=== PATIENT | female | born 1975 | race Hispanic/Latino ===

== ENCOUNTER 2018-12-26 14:46 | Emergency (ER) | payer BC, OTHER ==
[~2018-12-26 14:46] MED LIST: AEC81 PO
[2018-12-26 17:31] LABS: BASOPHILS % (AUTO) 0.8 % (0.0-5.0); HEMATOCRIT 28.8 % (36-48); LYMPHOCYTES % (AUTO) 17.6 % (21.0-51.0); MEAN CORPUSCULAR HEMOGLOBIN 25.4 pg (27.0-33.0); MEAN CORPUSCULAR HGB CONC 32.9 g/dL (32.0-36.0); MEAN CORPUSCULAR VOLUME 77.1 fL (79-99); MONOCYTES % (AUTO) 7.7 % (3.0-13.0); NEUTROPHILS % (AUTO) 71.9 % (40.0-77.0); PLATELET COUNT (AUTO) 306 K/uL (130-400); RED BLOOD CELL COUNT(AUTO) 3.73 MIL/uL (4.00-5.50); WHITE BLOOD COUNT (AUTO) 8.3 K/uL (4.8-10.8)
[2018-12-26 17:36] LABS: CREATININE 1.6 mg/dL (0.5-1.5); POTASSIUM 3.5 mmol/L (3.5-5.1)
[2018-12-26 17:41] LABS: ALBUMIN 2.8 g/dL (3.5-5.0); BILIRUBIN,TOTAL 0.1 mg/dL (0.2-1.0); TOTAL PROTEIN, SERUM 7.2 g/dL (6.0-8.3)
== END 2018-12-26 19:06 | disposition home or self-care (01) ==
LOC: EDH 14:46
DX: R55 Syncope and collapse (principal); I10 Essential (primary) hypertension; I48.91 Unspecified atrial fibrillation; E66.01 Morbid (severe) obesity due to excess calories; Z88.6 Allergy status to analgesic agent; Z86.73 Personal history of transient ischemic attack (TIA), and cerebral infarction without residual deficits; Z96.89 Presence of other specified functional implants; Z88.8 Allergy status to other drugs, medicaments and biological substances; Z68.44 Body mass index [BMI] 60.0-69.9, adult
CPT/HCPCS: 36415; 80053; 84484; 85025; 93005; 96360; 96361

== ENCOUNTER 2019-02-15 09:50 | Emergency (ER) | payer BC ==
[2019-02-15 11:45] LABS: BASOPHILS % (AUTO) 0.9 % (0.0-5.0); EOSINOPHILS % (AUTO) 1.3 % (0.0-8.0); LYMPHOCYTES % (AUTO) 16.7 % (21.0-51.0); MEAN CORPUSCULAR HEMOGLOBIN 26.4 pg (27.0-33.0); MEAN CORPUSCULAR HGB CONC 33.1 g/dL (32.0-36.0); MEAN CORPUSCULAR VOLUME 79.6 fL (79-99); MONOCYTES % (AUTO) 8.2 % (3.0-13.0); NEUTROPHILS % (AUTO) 72.9 % (40.0-77.0); PLATELET COUNT (AUTO) 301 K/uL (130-400); RED BLOOD CELL COUNT(AUTO) 4.27 MIL/uL (4.00-5.50); RED CELL DISTRIBUTION WIDTH 19.9 % (11.0-15.5); WHITE BLOOD COUNT (AUTO) 9.7 K/uL (4.8-10.8)
[2019-02-15 11:56] LABS: CREATININE 1.5 mg/dL (0.5-1.5); POTASSIUM 4.2 mmol/L (3.5-5.1)
[2019-02-15 12:00] LABS: ALBUMIN 3.1 g/dL (3.5-5.0); BILIRUBIN,TOTAL 0.2 mg/dL (0.2-1.0); TOTAL PROTEIN, SERUM 7.6 g/dL (6.0-8.3)
[2019-02-15] MEDS ORDERED: IOHEXOL 350 MG/ML 100ML INFUS..BTL IV ONE (12:38)
[2019-02-15 12:41] LABS: INR 0.91 (0.85-1.15); PARTIAL THROMBOPLASTIN TIME 26.5 SEC (26.3-35.5); PROTHROMBIN TIME 9.6 SEC (9.6-11.6)
[2019-02-15 14:01] LABS: APPEARANCE,URINE Clear (CLEAR); BILIRUBIN,URINE Negative (NEGATIVE); COLOR,URINE Yellow (YELLOW); GLUCOSE, URINE (UA) Negative (NEGATIVE); KETONES,URINE Negative (NEGATIVE); LEUKOCYTE ESTERASE ,URINE Negative (NEGATIVE); NITRATE,URINE Negative (NEGATIVE); OCCULT BLOOD,URINE Negative (NEGATIVE); PROTEIN,URINE POS 2+ mg/dL (NEGATIVE); UROBILINOGEN,URINE 0.2 mg/dL (0.2-1.0)
[2019-02-15 14:10] LABS: BACTERIA,URINE Rare /HPF (None Seen); RBC,URINE 0-1 /HPF (0-1); SQUAMOUS EPITHELIAL CELL,UR Few /HPF (0-2); WBC,URINE 0-1 /HPF (0-1)
== END 2019-02-15 16:06 | disposition home or self-care (01) ==
LOC: EDH 09:50
DX: R42 Dizziness and giddiness (principal); R51 Headache; I10 Essential (primary) hypertension; I48.91 Unspecified atrial fibrillation; Z95.0 Presence of cardiac pacemaker; Z98.890 Other specified postprocedural states; Z90.49 Acquired absence of other specified parts of digestive tract; Z88.8 Allergy status to other drugs, medicaments and biological substances
CPT/HCPCS: 36415; 70496; 70498; 80053; 81001; 84484; 85025; 85610; 85730; 93005; 96360; 96361; 99285; Q9967

== ENCOUNTER → 2019-09-22 | Outpatient (CLI) | payer OTHER | END | disposition home or self-care (01) | LOC: RAH 13:09 | PROVIDERS: ATTEND Orthopaedic Surgery | DX: M47.816 Spondylosis without myelopathy or radiculopathy, lumbar region (principal); E66.01 Morbid (severe) obesity due to excess calories; S33.5XXD Sprain of ligaments of lumbar spine, subsequent encounter; X58.XXXD Exposure to other specified factors, subsequent encounter | CPT/HCPCS: 72131 ==

== ENCOUNTER 2020-05-12 19:16 | Emergency (ER) | payer OTHER ==
[2020-05-12 19:42] LABS: BASOPHILS % (AUTO) 0.9 % (0.0-5.0); EOSINOPHILS % (AUTO) 1.9 % (0.0-8.0); HEMATOCRIT 31.8 % (36-48); LYMPHOCYTES % (AUTO) 15.8 % (21.0-51.0); MEAN CORPUSCULAR HEMOGLOBIN 22.6 pg (27.0-33.0); MEAN CORPUSCULAR HGB CONC 29.6 g/dL (32.0-36.0); MEAN CORPUSCULAR VOLUME 76.4 fL (79-99); MONOCYTES % (AUTO) 9.1 % (3.0-13.0); NEUTROPHILS % (AUTO) 71.9 % (40.0-77.0); PLATELET COUNT (AUTO) 371 K/uL (130-400); RED BLOOD CELL COUNT(AUTO) 4.16 MIL/uL (4.00-5.50); RED CELL DISTRIBUTION WIDTH 15.9 % (11.0-15.5); WHITE BLOOD COUNT (AUTO) 9.7 K/uL (4.8-10.8)
[2020-05-12] MEDS ORDERED: LIDOCAINE HCL 2% VISCOUS 15 ML UDCUP ONE (19:54)
[2020-05-12] MEDS ORDERED: MAG HYDROX/AL HYDROX/SIMETH ES 30 ML SUSP UDCUP ONE (19:54)
[2020-05-12] MEDS ORDERED: METOCLOPRAMIDE 10 MG/2 ML VIAL ONE (19:55)
[2020-05-12 19:56] LABS: INR 0.88 (0.85-1.15); PARTIAL THROMBOPLASTIN TIME 23.6 SEC (26.3-35.5); PROTHROMBIN TIME 9.5 SEC (9.6-11.6)
[2020-05-12] MEDS ORDERED: FAMOTIDINE/PF 20 MG/2 ML VIAL IV ONE (19:56)
[2020-05-12 19:59] LABS: CREATININE 1.9 mg/dL (0.5-1.5); POTASSIUM 3.6 mmol/L (3.5-5.1)
[2020-05-12 20:03] LABS: ALBUMIN 3.2 g/dL (3.5-5.0); BILIRUBIN,TOTAL 0.2 mg/dL (0.2-1.0); TOTAL PROTEIN, SERUM 7.8 g/dL (6.0-8.3)
== END 2020-05-12 21:15 | disposition home or self-care (01) ==
LOC: EDH 19:16
DX: R10.13 Epigastric pain (principal); R07.89 Other chest pain; R11.0 Nausea; R53.1 Weakness; I10 Essential (primary) hypertension; I48.91 Unspecified atrial fibrillation; Z86.73 Personal history of transient ischemic attack (TIA), and cerebral infarction without residual deficits; Z95.0 Presence of cardiac pacemaker; Z88.6 Allergy status to analgesic agent; Z88.8 Allergy status to other drugs, medicaments and biological substances
CPT/HCPCS: 36415; 71045; 80053; 82550; 83690; 83880; 84484; 85025; 85610; 85730; 93005; 96374; 96375; 99285; J2765; J3490

== ENCOUNTER → 2024-06-02 | Outpatient (CLI) | payer OTHER, MEDICARE ==
[~2024-06-02] VITALS: Ht 175.3 cm; Wt 224.1 kg
[~2024-06-02] MED LIST changes: -AEC81 PO; +AMLO-258 PO; +APIX5TAB PO; +CHOL100020 PO; +CYAN-106 PO; +FERR210T PO; +FOLI0.8T22 PO; +FOLI0.8T3 PO; +FURO40TA5 PO; +HYDR50TA37 PO; +PANT40TA55 PO; +SENN-7 PO; +SENN8.6T32 PO; +SEVE800T27 PO
[2024-06-02 14:09] LABS: EOSINOPHILS # (AUTO) 0.21 K/uL (0.00-0.70); EOSINOPHILS % (AUTO) 2.2 % (0.0-8.0); HEMATOCRIT 37.5 % (36-48); IMMATURE GRANULOCYTE ABSOLUTE 0.05 K/uL (0-1); LYMPHOCYTES # (AUTO) 1.8 K/uL (1.0-4.8); LYMPHOCYTES % (AUTO) 19.1 % (21.0-51.0); MEAN CORPUSCULAR HEMOGLOBIN 32.8 pg (27.0-33.0); MEAN CORPUSCULAR HGB CONC 31.7 g/dL (32.0-36.0); MEAN CORPUSCULAR VOLUME 103.3 fL (79-99); MONOCYTES # (AUTO) 0.7 K/uL (0.1-1.0); MONOCYTES % (AUTO) 6.7 % (3.0-13.0); NEUTROPHILS # (AUTO) 6.8 K/uL (1.8-7.7); NEUTROPHILS % (AUTO) 70.5 % (40.0-77.0); PLATELET COUNT (AUTO) 299 K/uL (130-400); RED BLOOD CELL COUNT(AUTO) 3.63 MIL/uL (4.00-5.50); RED CELL DISTRIBUTION WIDTH 14.8 % (11.0-15.5); WHITE BLOOD COUNT (AUTO) 9.6 K/uL (4.8-10.8)
[2024-06-02 14:10] VITALS: BP 172/80; PULSE 87; RESP 18
[2024-06-02 14:23] LABS: PROTHROMBIN TIME 10.8 SEC (9.6-11.6)
[2024-06-02 14:25] LABS: PARTIAL THROMBOPLASTIN TIME 24.8 SEC (26.3-35.5)
== END | disposition home or self-care (01) ==
LOC: EDSTATUS 08:00 → DAH 10:00
PROVIDERS: ATTEND Student in an Organized Health Care Education/Training Program
DX: Z01.818 Encounter for other preprocedural examination (principal); N18.6 End stage renal disease
CPT/HCPCS: 84703; 85025; 85610; 85730; 36415; A6260

== ENCOUNTER → 2024-09-29 | Outpatient (CLI) | payer OTHER ==
[~2024-09-29] VITALS: Ht 22.9 cm; Wt 226.4 kg
[~2024-09-29] MED LIST changes: +AMOX1TAB15 PO; +APIX2.5T PO; -APIX5TAB PO; +CINA60TA4 PO; +CLIN-26 PO; -FOLI0.8T22 PO; -FOLI0.8T3 PO; +FOLI1TAB85 PO; +MUPI22OI2 TP; -SENN8.6T32 PO; -SEVE800T27 PO; +SEVE800T7 PO
--- NOTE | 2024-09-29 16:27 | NUR ---
BARIATRIC INITIAL ASSESSMENT VISIT 1 OF 3 Wt: 499.2 lbs DOS: 09/29/24 Daughter present during visit. Pt seeking bariatric procedure to aid in wt loss and improve medical health conditions. Pt reported she takes phosphate binders, diuretics, HTN medication, folic avid, vit. b12, vit. 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, on a fluid restriction 1.5L, is on a wheelchair due to a back injury, her sister recently had the sleeve, has 2 children living at home, daughter cooks and goes grocery shopping, had a stroke 2014 and 2017, has poor appetite, usually eats ~2 meals + 1 snack per day, takes 10 min to eat, drinks soda 3x per week, sparkling soda 1x per day, sweets 1x per week, fast food 2x per month, does not struggle with stress eating, does not work, does not travel often, has the means to purchase healthy food with no issue, sleeping varies from 4 to 8 hrs, has support system, goal wt of at least 300 lbs, is motivated to get procedure to get on the list for renal transplant. RD conducted 24 hr recall: Breakfast: skipped Lunch: smoked chicken + small rice + beans + sparkling water Dinner: burger + cheese + lemonade Snack(s): N/A RD reviewed portion sizes with pt, reviewed healthy plate, informed Pt of importance of protein intake, encouraged Pt to do strength training with bands, Pt verbalized understanding. Pt completed wt management program diet readiness questionnaire. Results are as follows: Section 1: Goals and Attitudes. Score of 29. The path is clear with respect to goals and attitudes. Sections 2: Hunger and Eating cues. Score 7. You may have a moderate tendency to eat just because food is available. Dieting may be easier for you if you try to resist external cues and eat only when you are physically hungry. Section 3: Control over Eating. Score 4.You recover rapidly from mistakes. However, if you frequently alternate between eating out of control and dieting strictly, you may have a serious eating problem and should get professional help. Section 4: Imelda Eating and Purging: Score 0.It appears that binge eating, and purging is not a problem for you. Section 5: Emotional Eating: Score 3.You do not appear to let your emotions affect your eating. Section 6: Exercise Patterns and Attitudes: Score 12.You need to feel more positive about exercise so that you can do it more often. Think of ways to be more active that are fun and fit your lifestyle. Goals Established: -seated exercise 10 min 2 x per week -continue renalVITE QD -decrease carbonation Pt in agreement with goals and is aware she will need to cut carbonated beverages, sweets and caffeine prior to surgery. Recommended for Pt to complete visits with Dietitian to prepare for bariatric procedure. Thank you for this visit. Addendum: 09/29/24 at [address] Amended: Links added.
== END | disposition home or self-care (01) ==
LOC: DTH 15:20
PROVIDERS: ATTEND Surgery
DX: G47.33 Obstructive sleep apnea (adult) (pediatric) (principal); E66.01 Morbid (severe) obesity due to excess calories; E78.00 Pure hypercholesterolemia, unspecified; K76.0 Fatty (change of) liver, not elsewhere classified; K21.9 Gastro-esophageal reflux disease without esophagitis
CPT/HCPCS: 97802

== ENCOUNTER → 2024-10-25 | Outpatient (CLI) | payer OTHER ==
--- NOTE | 2024-10-25 15:50 | NUR ---
BARIATRIC FOLLOW UP NOTE VISIT 2 OF 3 Wt: 235 LBS DOS: 10/25/24 Upon follow up visit, pt presents with a 3 lb wt loss. Pt reported she continues with zahra-RUBÉN QD, decreased carbonation, continues sugary drinks, taking time to eat, takes vit. D daily 2,500 ius, arxia w/ iron, receives blood transfusion while in HD, on a 1.5 fluid restriction, plans to talk to her MD regarding fluid restriction. RD conducted 24 hr food recall. Breakfast: skipped due to dialysis Lunch: 2 pizza slices + water Dinner: baked chicken thigh + corn + macaroni RD reviewed simple CHO and complex CHO intake, encouraged pt to decrease soft drink (even sugar free) consumption secondary to carbonation and caffeine, pt verbalized understanding. RD and pt established goals for next month: -switch to SF beverages -continue zahra-RUBÉN -balanced meals Thank you for this visit Plan to talk to renal RD due to dialysis dietary recs and bariatric dietary recs. Addendum: 10/25/24 at [address] Amended: Links added.
== END | disposition home or self-care (01) ==
LOC: DTH 07:53
PROVIDERS: ATTEND Surgery
DX: G47.33 Obstructive sleep apnea (adult) (pediatric) (principal); E66.01 Morbid (severe) obesity due to excess calories; E78.00 Pure hypercholesterolemia, unspecified; K76.0 Fatty (change of) liver, not elsewhere classified; K21.9 Gastro-esophageal reflux disease without esophagitis; Z71.3 Dietary counseling and surveillance; Z68.45 Body mass index [BMI] 70 or greater, adult
CPT/HCPCS: 97803

== ENCOUNTER → 2024-10-25 | Outpatient (CLI) | payer OTHER ==
--- NOTE | 2024-10-25 09:49 | EKG ---
[facility] Test Date: 2024-10-25 Test Time: 10:24:56 Pat Name: MANA ABDUL Department: LAB Patient ID: [facility] [place]-[id number] Room: Gender: F Chief Sales Officer: [id number] : 1975 Requested By: DIETER HERNANDEZ Order Number: [id number] Reading MD: Naheed Jameson Measurements Intervals [place] Rate: 80 P: 43 ME: 333 QRS: -26 QRSD: 110 T: -76 QT: 414 QTc: 477 Interpretive Statements Sinus rhythm Prolonged ME interval Compared to ECG 09/21/2024 08:28:26 No significant changes Electronically Signed On 10-26-2024 17:09:22 MYSQL DEVELOPER by Naheed Jameson Please click the below link to view image of tracing.
[2024-10-25 09:53] LABS: BASOPHILS # (AUTO) 0.11 K/uL (0.00-0.20); BASOPHILS % (AUTO) 1.1 % (0.0-5.0); EOSINOPHILS % (AUTO) 1.9 % (0.0-8.0); HEMATOCRIT 41.8 % (36-48); IMMATURE GRANULOCYTE ABSOLUTE 0.05 K/uL (0-1); LYMPHOCYTES # (AUTO) 1.8 K/uL (1.0-4.8); LYMPHOCYTES % (AUTO) 17.5 % (21.0-51.0); MEAN CORPUSCULAR HEMOGLOBIN 30.5 pg (27.0-33.0); MEAN CORPUSCULAR HGB CONC 31.1 g/dL (32.0-36.0); MEAN CORPUSCULAR VOLUME 98.1 fL (79-99); MONOCYTES # (AUTO) 0.6 K/uL (0.1-1.0); NEUTROPHILS # (AUTO) 7.5 K/uL (1.8-7.7); PLATELET COUNT (AUTO) 268 K/uL (130-400); RED BLOOD CELL COUNT(AUTO) 4.26 MIL/uL (4.00-5.50); RED CELL DISTRIBUTION WIDTH 15.8 % (11.0-15.5); WHITE BLOOD COUNT (AUTO) 10.3 K/uL (4.8-10.8)
[2024-10-25 10:01] LABS: HEMOGLOBIN A1C 5.1 % (4.0-6.0)
[2024-10-25 10:21] LABS: ALBUMIN 3.7 g/dL (3.5-5.0); BILIRUBIN,TOTAL 0.3 mg/dL (0.2-1.0); MAGNESIUM 2.3 mg/dL (1.80-2.40); POTASSIUM 3.8 mmol/L (3.5-5.1); T4 (THYROXINE) 9.6 ug/dL (4.7-13.3); THYROID STIMULATING HORMONE 3.03 uIU/mL (0.36-3.74); TOTAL PROTEIN, SERUM 8.4 g/dL (6.0-8.3)
[2024-10-25 10:27] LABS: CREATININE 8.3 mg/dL (0.5-1.0)
--- NOTE | 2024-10-25 14:26 | HMCIMG ---
CHEST 1VW REASON: WEIGHT LOSS PROGRAM COMPARISON: 09/21/2024 FINDINGS: Single view of the chest was obtained. Lungs are clear. Heart size is normal. There is no pulmonary vascular congestion. Mediastinum and bony thorax appear unremarkable. There is a PermCath in place. There is a bipolar pacemaker. IMPRESSION: 1. No acute finding, no change.
== END | disposition home or self-care (01) ==
LOC: LAB 08:21
PROVIDERS: ATTEND Surgery
DX: E78.00 Pure hypercholesterolemia, unspecified (principal); K76.0 Fatty (change of) liver, not elsewhere classified; E78.5 Hyperlipidemia, unspecified; K21.9 Gastro-esophageal reflux disease without esophagitis; G47.33 Obstructive sleep apnea (adult) (pediatric); E66.01 Morbid (severe) obesity due to excess calories; Z68.45 Body mass index [BMI] 70 or greater, adult; Z79.899 Other long term (current) drug therapy
CPT/HCPCS: 36415; 71045; 80053; 80061; 82306; 82607; 82746; 83036; 83540; 83735; 84207; 84425; 84436; 84443; 84446; 84481; 84590; 84630; 85025; 93005

== ENCOUNTER → 2024-11-06 | Outpatient (CLI) | payer OTHER ==
[2024-11-06 21:18] VITALS: PULSE 82; RESP 18
[2024-11-06 22:00] VITALS: PULSE 74; RESP 18
[2024-11-06 22:30] VITALS: PULSE 74; RESP 18
[2024-11-06 23:00] VITALS: PULSE 74; RESP 18
[2024-11-06 23:30] VITALS: PULSE 76; RESP 20
[2024-11-07] VITALS (10 sets, daily range): PULSE 72–76; RESP 14–18
--- NOTE | 2024-11-07 02:47 | NUR ---
PROTONIX 40 MG,FUROSIMIDE 40 MG, HYDRALAZINE 50 MG,ELIQUIS 2.5 MG,COLACE 50 MG Addendum: 11/07/24 at 0257 by SIS LEON Amended: Links added.
== END | disposition home or self-care (01) ==
LOC: SLP 20:09
PROVIDERS: ATTEND Internal Medicine Pulmonary Disease
DX: G47.33 Obstructive sleep apnea (adult) (pediatric) (principal); E66.9 Obesity, unspecified; R53.83 Other fatigue; I10 Essential (primary) hypertension
CPT/HCPCS: 95810

== ENCOUNTER → 2024-11-29 | Outpatient (CLI) | payer OTHER ==
[2024-11-29 22:33] VITALS: PULSE 66; RESP 20
[2024-11-29 23:02] VITALS: PULSE 65; RESP 14
[2024-11-29 23:47] VITALS: PULSE 64; RESP 17
[2024-11-30] VITALS (14 sets, daily range): PULSE 58–74; RESP 13–20
== END | disposition home or self-care (01) ==
LOC: SLP 20:52
PROVIDERS: ATTEND Internal Medicine Pulmonary Disease
DX: G47.33 Obstructive sleep apnea (adult) (pediatric) (principal)
CPT/HCPCS: 95811

== ENCOUNTER → 2024-12-07 | Outpatient (CLI) | payer OTHER ==
--- NOTE | 2024-12-07 16:33 | NUR ---
FOLLOW PRE-OP/POST-OP DIETARY RECOMMENDATIONS BARIATRIC PRE-OP VISIT VISIT 3 OF 3 Wt:492 lbs DOS:12/07/24 Visit via telehealth due to patient's preference + current spouse health situation. E-mailed Handout. Upon follow up visit, pt presented with a ~4 lb wt loss. 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 RD reviewed educational material for pre-op and post-op diet recommendations with detailed phases of diet post-op. Pt was informed of importance of lifelong vitamin/mineral supplementation, choosing protein first during meals (pt was educated on higher protein requirements), choosing low calorie, sugar free, carbonated free and caffeine beverages. RD also informed pt on lifelong commitment to exercise and dietary recommendations for optimal success post surgery. RD encouraged getting blood work every 3 to 6 months, including B-vitamins, Pt verbalized understanding. RD informed Pt on moving around after procedure to prevent DVT, Pt verbalized understanding. Pt was encouraged to contact RD as questions arise and to attend support groups. RD provided protein supplement recommendations along with Bariatric Vitamin recommendations via graphics to patient. Pt with several questions, all of which were answered. Poor compliance suspected. Pt will benefit from outpatient bariatric dietitian follow up post procedure. Pt to follow up with PCP for labs. Thank you for this visit. Addendum: 12/07/24 at [address] Amended: Links added.
== END | disposition home or self-care (01) ==
LOC: DTH 16:27
PROVIDERS: ATTEND Surgery
DX: G47.33 Obstructive sleep apnea (adult) (pediatric) (principal); K76.0 Fatty (change of) liver, not elsewhere classified; K21.9 Gastro-esophageal reflux disease without esophagitis; E66.01 Morbid (severe) obesity due to excess calories; Z68.45 Body mass index [BMI] 70 or greater, adult
CPT/HCPCS: 97803

== ENCOUNTER 2025-05-04 16:48 | Emergency (ER) | payer OTHER ==
[~2025-05-04] VITALS: Ht 175.3 cm; Wt 226.9 kg
[~2025-05-04 16:48] MED LIST changes: -AMOX1TAB15 PO; -CLIN-26 PO; +FOLI0.4T6 PO; +HYDR25 PO; +METO50TA9 PO; -MUPI22OI2 TP
--- NOTE | 2025-05-04 17:44 | NUR ---
PT PRESENTS WITH BLATERAL NON-FUNCTIONAL AV GRAFTS. PT STATES THEY ARE NOT CURRENTLY PRESERVING EITHER ARM FOR DIALYSIS. PER PT SHE IS GETTING DIALYSIS VIA RIGHT CHEST PERMACATH, WHICH WILL BE USED UNTIL AFTER HER GASTRIC BYPASS AND SUBSEQUENT WEIGHT LOSS. PT STATES THEY HAVE USED BOTH ARMS FOR BOTH BLOOD DRAW AND IV ACCESS.
[2025-05-04 17:59] LABS: IMMATURE GRANULOCYTE ABSOLUTE 0.04 K/uL (0-1); NUCLEATED RED BLOOD CELLS 0.0 % (0.0-0.19); PLATELET COUNT (AUTO) 277 K/uL (130-400); RED BLOOD CELL COUNT(AUTO) 3.32 MIL/uL (4.00-5.50); RED CELL DISTRIBUTION WIDTH 14.1 % (11.0-15.5); WHITE BLOOD COUNT (AUTO) 9.0 K/uL (4.8-10.8)
[2025-05-04 18:18] LABS: GLOMERULAR FILTR. RATE CALC 4.0 mL/min (>90); GLUCOSE,RANDOM 127.0 mg/dL (70-105); SODIUM SERUM 141.0 mmol/L (136-145); UREA NITROGEN, BLOOD 42.0 mg/dL (7-18)
[2025-05-04 18:21] LABS: CREATININE 11.8 mg/dL (0.5-1.0)
--- NOTE | 2025-05-04 18:44 | ERN ---
General Chief Complaint: Chest Wall Pain Stated Complaint: CHEST DISCOMFORT Time Seen by MD: 16:53 Source: patient History of Present Illness Initial Comments Patient is a 50-year-old female coming in complaining of chest pressure. Per patient she does has a history of end-stage renal disease has a has been dialyzed but states he has been having chest pressure. Patient states that she has a similar episode in the past but a heart normal per calcium score. Allergies: Coded Allergies: amiodarone (Unverified Allergy, Severe, ANAPHYLAXIS, 01/07/15) codeine (Unverified Allergy, Severe, SWOLLEN TONGUE, 01/07/15) lisinopril (Unverified Allergy, Unknown, 08/19/24) ANGIOEDEMA [id number] Reductase Inhibitor (Unverified Adverse Reaction, Unknown, 08/19/24) RHABDOMYOLYSIS Home Meds Active Scripts Metoprolol Succinate (Toprol Xl) 50 Mg Tab.er.24h, 50 MG PO DAILY, #30 TAB 0 Refills Prov:AVERY ALBRIGHT AGPCNP 03/04/25 Hydralazine HCl (Apresoline) 25 Mg Tab, 50 MG PO Q12H, #60 TAB 0 Refills Prov:AVERY ALBRIGHT AGPCNP 03/04/25 Apixaban (Eliquis) 2.5 Mg Tablet, 2.5 MG PO BID, #60 TAB 1 Refill Prov:PORSHA [facility] 09/23/24 Reported Medications Folic Acid (Folic Acid) 0.4 Mg Tablet, 1 MG PO DAILY, TAB 03/01/25 Cinacalcet HCl (Cinacalcet HCl) 60 Mg Tablet, 60 MG PO BID, TAB 09/21/24 Ferric Citrate (Ferric Citrate) 210 Mg Iron Tablet, 2 TAB PO TID for 30 Days, #180 TAB 0 Refills 09/21/24 Sevelamer Carbonate (Renvela) 800 Mg Tablet, 800 MG PO TID, TAB 09/21/24 Vit B Cmplx 3/FA/Vit C/Biotin (Wen-Christian Rx Tablet) 1 Mg-60 Mg-300 Mcg Tablet, 1 TAB PO DAILY for 30 Days, #30 TAB 0 Refills 09/21/24 Sennosides/Docusate Sodium (Senna-Docusate Sodium Tablet) 8.6 Mg-50 Mg Tablet, 1 EACH PO BID, TAB 06/02/24 Amlodipine Besylate (Amlodipine Besylate) 10 Mg Tablet, 10 MG PO DAILY for 30 Days, #30 TAB 0 Refills 05/23/24 Cholecalciferol (Vitamin D3) (Vitamin D3) 25 Mcg (1000 Unit) Tablet, 25 MCG PO DAILY, TAB 05/23/24 Cyanocobalamin (Vitamin B-12) (Vitamin B12) 1,000 Mcg Tablet, 1000 MCG PO DAILY, TAB 05/23/24 Pantoprazole Sodium (Protonix) 40 Mg Ectab, 40 MG PO DAILY, TAB.EC 05/23/24 Hydralazine HCl (Hydralazine HCl) 50 Mg Tablet, 50 MG PO TID, TAB 05/23/24 Furosemide (Furosemide) 40 Mg Tablet, 40 MG PO BID, TAB 05/23/24 Past Medical History Past Medical History: Anemia, CAD, CVA, High Cholesterol, Heart Disease, Hypertension, Renal Failure, Other Medical History Other: HX OF SLEEP APNEA Past Surgical History: Cholecystectomy, Pacer/AICD, Other, Surgical History Other: RIGHT CHEST , LEFT RAMIN CATH Family History Family History: Negative Social History Social History: Negative ROS Dictation CONSTITUTIONAL: No chills, no fever, no weakness, no diaphoresis, no malaise. HEAD/FACE: No signs of trauma. EENT: No eye pain, no blurred vision, no tearing, no double vision, no ear pain, no ear discharge, no nose pain, no nasal congestion, no throat pain, no th roat swelling, no mouth pain. RESPIRATORY: No cough, no orthopnea, no SOB, no stridor, no wheezing. CARDIOVASCULAR: chest pain, no edema, no palpitations, no syncope. GASTROINTESTINAL/ABDOMINAL: No abdominal pain, no constipation, no diarrhea, no nausea, no vomiting. GENITOURINARY: No abnormal discharge, no dysuria, no frequent urination, no hematuria. No complaints of pain in the genitals. MUSCULOSKELETAL: No back pain, no gout, no joint pain, no joint swelling, no muscle pain, no muscle stiffness, no neck pain. INTEGUMENTARY: No change in color, no change in hair/nails, no dryness, no lesion, no lumps, no rash. NEUROLOGICAL/PSYCH: No anxiety, not depressed, no emotional problem, no headache, no numbness, no pre-existing deficit, no history of seizures, no tremors, no weakness. HEMATOLOGIC/LYMPHATIC: Not anemic, no history of blood clots, no apparent bleeding, no bruising, glands not swollen. All Systems Negative, Except as Noted. Physical Exam Physical Exam Dictation VITAL SIGNS: Reviewed. GENERAL APPEARANCE: Alert, oriented x3, no acute distress, obese. HEAD AND FACE: Non-traumatic. EYES: PERRL, pink conjunctivas, eyelid no trauma, anterior chamber clear. EARS: Pinnas intact and no signs of trauma or erythema. Ear canals clear and no discharge. TMs no erythema. NOSE: No discharge, no bleeding. OROPHARYNX: Mouth normal, teeth no caries, tongue pink. Pharynx clear, no erythema. Tonsils no exudates, no abscesses noted. Mucous membrane moist. NECK: Supple, non-tender, no thyromegaly, no masses, no JVD, no bruits. BREAST: Deferred. CHEST: No tenderness, no crepitus, no paradoxical movement, no retractions. LUNGS: Clear, well-ventilated, symmetric, no rales, no wheezing, no rhonchi, no stridor, good breath sounds bilaterally. HEART: Regular rate, regular rhythm, no murmur, no gallops. VASCULAR: No peripheral edema. ABDOMEN: Soft, positive bowel sounds, nondistended, no guarding, nontender, no rebound, no masses no hepatomegaly, no splenomegaly, no Buchanan's sign, no hernias. RECTAL: Deferred. GENITAL: Deferred. NEUROLOGICAL: Normal speech, gross motor function intact, gross sensory function intact. MUSCULOSKELETAL: Neck nontender, full range of motion, back nontender, full range of motion. EXTREMITIES: Nontender, full range of motion. SKIN: Color pink, dry, no turgor, no rash, no lacerations, no abrasions, no co ntusions. LYMPHATICS: Deferred. Results Laboratory and Microbiology Lab and Micro Result Laboratory Tests Test 05/04/25 17:55 05/04/25 18:50 White Blood Count 9.0 K/uL (4.8-10.8) Red Blood Count 3.32 MIL/uL (4.00-5.50) L Hemoglobin 10.4 g/dL (12.0-16.0) L Hematocrit 32.2 % (36-48) L Mean Corpuscular Volume 97.0 fL (79-99) Mean Corpuscular Hemoglobin 31.3 pg (27.0-33.0) Mean Corpuscular Hemoglobin Concent 32.3 g/dL (32.0-36.0) Red Cell Distribution Width 14.1 % (11.0-15.5) Platelet Count 277 K/uL (130-400) Mean Platelet Volume 9.5 fL (7.5-10.5) Immature Granulocyte % (Auto) 0.4 % (0-1) Neutrophils (%) (Auto) 72.5 % (40.0-77.0) Lymphocytes (%) (Auto) 15.3 % (21.0-51.0) L Monocytes (%) (Auto) 8.2 % (3.0-13.0) Eosinophils (%) (Auto) 2.7 % (0.0-8.0) Basophils (%) (Auto) 0.9 % (0.0-5.0) Neutrophils # (Auto) 6.6 K/uL (1.8-7.7) Lymphocytes # (Auto) 1.4 K/uL (1.0-4.8) Monocytes # (Auto) 0.7 K/uL (0.1-1.0) Eosinophils # (Auto) 0.24 K/uL (0.00-0.70) Basophils # (Auto) 0.08 K/uL (0.00-0.20) Absolute Immature Granulocyte (auto 0.04 K/uL (0-1) Nucleated Red Blood Cells 0.0 % (0.0-0.19) Sodium Level 141 mmol/L (136-145) Potassium Level 3.7 mmol/L (3.5-5.1) Chloride Level 101 mmol/L (101-111) Carbon Dioxide Level 30 mmol/L (21-32) Blood Urea Nitrogen 42 mg/dL (7-18) H Creatinine 11.8 mg/dL (0.5-1.0) *H Glomerular Filtration Rate Calc 4 mL/min (>90) Random Glucose 127 mg/dL (70-105) H Total Calcium 8.5 mg/dL (8.5-10.1) Troponin I High Sensitivity 8 ng/L (4-50) 8 ng/L (4-50) B-Type Natriuretic Peptide 138 pg/mL (0-100) H Labs Reviewed?: Yes EKG/XRAY/US/CT/MRI EKG Comment 05/04/2025 time 5:03 p.m. ventricular rate 77 Sinus rhythm [place] [address] wave elevation or depression X-RAY Comment REASON: cp ORDERING PHYSICIAN: TEA ROD MD PROCEDURE: CXR1VW - CHEST 1VW EXAM: CR Chest, 1 View. CLINICAL HISTORY: cp COMPARISON: 03/01/2025. FINDINGS: Again noted is a right sided central catheter and a pacemaker. LUNGS: The lungs show no infiltrate or other acute finding. PLEURAL SPACES: No evidence of pleural effusion or pneumothorax. MEDIASTINUM: Cardiac size and mediastinal contours within normal limits. BONES: No aggressive appearing osseous lesion seen. IMPRESSION: No acute cardiopulmonary pathology is evident. /[place] DICTATED BY: SANJANA ARGUELLO MD DATE: 05/04/251943 ELECTRONICALLY SIGNED BY: SANJANA ARGUELLO MD DATE: 05/04/251943 MDM MDM: Differential diagnosis: Rationale: Tests considered and ordered secondary to shared decision making include: Previous outside records reviewed: Old ER visits. Risk of complication and/or morbidity or mortality of patient management: None Medications-Per medication reconciliation Need for hospitalization: Patient does not meet criteria for hospitalization. Need for emergency major/minor surgery: No There are no social concerns with this patient. Prescription drug management Prescriptions will include symptomatic care Patient's prior external medical records from other ER visits were reviewed by me as indicated. Prior testing and results from previous visits were reviewed. Prior tests were taken into account with medical decision making and resource utilization, independent historian/historians were used to obtain complete medical history. I independently interpreted the test that were performed, results were reviewed by me and considered findings on radiology if ordered. Medical management and examination interpretation discussions were had by me with other qualified healthcare professionals as indicated for the patient's care. ED Course Orders Procedure Category Date Status Time Cbc With Differential LAB 05/04/25 Complete 17:05 Chest 1vw RAD 05/04/25 Resulted 17:05 12 Lead Ekg Tracing- EKG 05/04/25 Logged Technical 17:05 Troponin I High LAB 7/24/25 Complete Sensitivity 17:05 Basic Metabolic Panel LAB 05/04/25 Complete 17:05 Pantoprazole 40mg Inj PHA 05/04/25 Complete (Protonix 40mg Inj 17:30 B-Type Natriuretic LAB 05/04/25 Complete Peptide 18:25 Lidocaine Hcl 2% PHA 05/04/25 Complete Viscous (Lidocaine Hcl 19:00 Mag/Alum/Simeth 30ml PHA 05/04/25 Complete (Maalox Plus 30ml) 19:00 Troponin I High LAB 05/04/25 Complete Sensitivity 18:45 Hydromorphone 1 Mg PHA 05/04/25 Complete Inj (Dilaudid 1mg Inj 20:30 Ondansetron 4mg Inj PHA 05/04/25 Complete (Zofran 4mg Inj) 20:30 Current Medications Medications (Trade) Dose Ordered Sig/Mayank Route PRN Reason Start Time Stop Time Status Last Admin Dose Admin Al Hydroxide/Mg Hydroxide (MAALox PLUS 30ML) 30 ml ONCE ONCE PO 05/04/25 19:00 05/04/25 19:01 DC 05/04/25 19:00 Hydromorphone HCl (DiLAUDid 1MG INJ) 1 mg ONCE ONCE IVP 05/04/25 20:30 05/04/25 20:31 DC Lidocaine HCl (Lidocaine HCl 2% Viscous) 10 ml ONCE ONCE PO 05/04/25 19:00 05/04/25 19:01 DC 05/04/25 19:00 Ondansetron HCl (zoFRAN 4MG INJ) 4 mg ONCE ONCE IVP 05/04/25 20:30 05/04/25 20:31 DC 05/04/25 20:20 Pantoprazole Sodium (PROTonix 40MG INJ) 40 mg ONCE ONCE IVP 05/04/25 17:30 05/04/25 17:31 DC 05/04/25 18:28 Vital Signs Date Time Temp Pulse Resp B/P (MAP) Pulse Ox O2 Delivery O2 Flow Rate FiO2 05/04/25 21:06 98.8 64 18 153/65 96 Room Air* 0 05/04/25 20:15 99.0 65 18 148/76 96 Room Air* 0 05/04/25 19:00 99.0 66 18 133/68 96 Room Air* 0 05/04/25 17:26 76 18 117/62 98 Room Air* 0 05/04/25 16:54 100.0 77 18 142/77 96 Room Air 0 7:00 p.m. patient was signed out to me by a.m. physician. Ms. Oh is a 50-year-old female with multiple medical problems and super obesity with a BMI of 74 presented to the emergency room complaining of left-sided chest pressure 1 hour prior to the presentation. She denied any diaphoresis or palpitations. She took some Tylenol prior to the presentation. Patient is on a Thursday dialysis schedule and last dialysis was yesterday. Patient was tearful when asked about her body habitus and stated that at 1 point she was evaluated for bariatric surgery however in January 2025, her spouse and she has had financial trouble since then She denied any cough sputum or hemoptysis. No fever chills or rigors. No nausea vomitings. She does give a history of occasional reflux but nothing symptomatic at this time. 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 And she does have a Ramin catheter for ongoing hemodialysis. She also reported that for the past 1 month as she has had dysfunctional uterine bleeding and extremely prolonged monthly periods she was told to hold the E liquis. Labs reviewed hemoglobin is 10.4 BNP 7 is significant for a BUN of 42 creatinine 11.8 troponin 2 sets 8 and 8. Brain natriuretic peptide is 138 Chest x-ray negative for any acute infiltrate. No pleural effusions. I independently evaluated the patient and reviewed all the records as above and had a discussion with the patient and updated her on innocuous EKG normal tropon ins and that this pain may simply be from hiatal hernia or musculoskeletal pain and offered to give her pain medication however she refused and wanted to take only Tylenol. I counseled her extensively about limitations in care or diagnostic studies due to her body habitus. And I encouraged her to ask her primary care physician to initiate a weight loss program. She stated that PCP was only recommending starting phentermine and in the past patient did not tolerate that. DX & DISP Disposition: Discharge Departure Impression: Primary Impression: Chest pain Additional Impressions: End-stage renal disease on hemodialysis, I ntraventricular conduction delay, Morbid obesity Condition: Stable Additional Instructions: Patient and the caregiver have been informed of all the diagnostic tests and the imaging conducted during the today's visit to the emergency room and has verbalized understanding of the results I have personally reviewed and interpreted all diagnostic exams performed here in the ER today as well as the vital signs documented by the nursing staff. The patient is now being discharged to home and should follow up with the primary care physician or the specialist as directed by the ER staff. Follow-up with primary care provider in 1 to 2 days. Take medications as directed here in the emergency room. Okay to continue home medications unless otherwise discussed during your visit in the emergency room today. Return to your nearest emergency room if symptoms worsen or if there is no improvement. Call 911 if you need immediate assistance. Take Tylenol or Motrin [id number] as needed and if no contraindications are present. Increase oral hydration. A wound culture or urine culture was ordered here in the emergency room department please follow-up with primary care provider and advise them to get repeat ports from our facility. If you had any Jos wrap/splints that were applied here, please do not remove them until you see your primary care or specialty. Referrals: FABBY SPENCER MD (PCP) TEA ROD MD May 04, 2025 18:44 KENDRA PÉREZ MD May 04, 2025 20:09
[2025-05-04] MEDS: LIDOCAINE HCL 2% VISCOUS 15 ML UDCUP PO ONE (19:00)
[2025-05-04] MEDS: MAG/ALUM/SIMETH 30 ML UDCUP PO ONE (19:00)
[2025-05-04 21:06] VITALS: BP 153/65; PULSE 64; RESP 18; TEMP 98.7; O2SAT 96
--- NOTE | 2025-05-05 07:39 | EKG ---
[facility] Test Date: 2025-05-04 Test Time: 17:03:39 Pat Name: MANA ABDUL Department: ED Room: Gender: F Business Process Manager: 08 : 1975 Requested By: TEA ROD Order Number: [id number] Reading MD: Hermes Knight Measurements Intervals [place] Rate: 77 P: 53 WA: 342 QRS: -24 QRSD: 129 T: 31 QT: 468 QTc: 529 Interpretive Statements Sinus rhythm Prolonged [place] interval Probable left ventricular hypertrophy Compared to ECG 03/01/2025 12:08:22 Intraventricular conduction delay no longer present Electronically Signed On 05-07-2025 23:56:50 CDT by Hermes Knight Please click the below link to view image of tracing.
== END 2025-05-04 20:56 | disposition home or self-care (01) ==
LOC: EDH 16:48
DX: I12.0 Hypertensive chronic kidney disease with stage 5 chronic kidney disease or end stage renal disease (principal); I25.10 Atherosclerotic heart disease of native coronary artery without angina pectoris; N18.6 End stage renal disease; R07.89 Other chest pain; E66.01 Morbid (severe) obesity due to excess calories; E78.00 Pure hypercholesterolemia, unspecified; Z79.01 Long term (current) use of anticoagulants; Z79.899 Other long term (current) drug therapy; Z86.73 Personal history of transient ischemic attack (TIA), and cerebral infarction without residual deficits; Z88.5 Allergy status to narcotic agent; Z88.8 Allergy status to other drugs, medicaments and biological substances; Z90.49 Acquired absence of other specified parts of digestive tract; Z95.810 Presence of automatic (implantable) cardiac defibrillator; Z99.2 Dependence on renal dialysis
CPT/HCPCS: 99285; 96374; 71045; 96375; 84484 ×2; 80048; 83880; 85025; 36415; 93005; J2405; J2470; J1171

== ENCOUNTER 2025-07-04 09:14 | Emergency (ER) | payer OTHER ==
[~2025-07-04] VITALS: Ht 175.3 cm; Wt 226.9 kg
--- NOTE | 2025-07-04 09:57 | ERN ---
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 She reports heavy bleeding for about a month now. She reports feeling very dizzy and fatigued to day. She reports she has had this before in the past and required blood transfusions. She denies any pain. No chest pain. No cough congestion or fevers. She is anticoagulated. Allergies: Coded Allergies: amiodarone (Unverified Allergy, Severe, ANAPHYLAXIS, 01/07/15) codeine (Unverified Allergy, Severe, SWOLLEN TONGUE, 01/07/15) lisinopril (Unverified Allergy, Unknown, 08/19/24) ANGIOEDEMA [id number] Reductase Inhibitor (Unverified Adverse Reaction, Unknown, 08/19/24) RHABDOMYOLYSIS Home Meds Active Scripts Metoprolol Succinate (Toprol Xl) 50 Mg Tab.er.24h, 50 MG PO DAILY, #30 TAB 0 Refills Prov:AVERY ALBRIGHT AGPCNP 03/04/25 Hydralazine HCl (Apresoline) 25 Mg Tab, 50 MG PO Q12H, #60 TAB 0 Refills Prov:AVERY ALBRIGHT AGPCNP 03/04/25 Apixaban (Eliquis) 2.5 Mg Tablet, 2.5 MG PO BID, #60 TAB 1 Refill Prov:PORSHA HERCULES 09/23/24 Reported Medications Folic Acid (Folic Acid) 0.4 Mg Tablet, 1 MG PO DAILY, TAB 03/01/25 Cinacalcet HCl (Cinacalcet HCl) 60 Mg Tablet, 60 MG PO BID, TAB 09/21/24 Ferric Citrate (Ferric Citrate) 210 Mg Iron Tablet, 2 TAB PO TID for 30 Days, #180 TAB 0 Refills 09/21/24 Sevelamer Carbonate (Renvela) 800 Mg Tablet, 800 MG PO TID, TAB 09/21/24 Vit B Cmplx 3/FA/Vit C/Biotin (Wen-Christian Rx Tablet) 1 Mg-60 Mg-300 Mcg Tablet, 1 TAB PO DAILY for 30 Days, #30 TAB 0 Refills 09/21/24 Sennosides/Docusate Sodium (Senna-Docusate Sodium Tablet) 8.6 Mg-50 Mg Tablet, 1 EACH PO BID, TAB 06/02/24 Amlodipine Besylate (Amlodipine Besylate) 10 Mg Tablet, 10 MG PO DAILY for 30 Days, #30 TAB 0 Refills 05/23/24 Cholecalciferol (Vitamin D3) (Vitamin D3) 25 Mcg (1000 Unit) Tablet, 25 MCG PO DAILY, TAB 05/23/24 Cyanocobalamin (Vitamin B-12) (Vitamin B12) 1,000 Mcg Tablet, 1000 MCG PO DAILY, TAB 05/23/24 Pantoprazole Sodium (Protonix) 40 Mg Ectab, 40 MG PO DAILY, TAB.EC 05/23/24 Hydralazine HCl (Hydralazine HCl) 50 Mg Tablet, 50 MG PO TID, TAB 05/23/24 Furosemide (Furosemide) 40 Mg Tablet, 40 MG PO BID, TAB 05/23/24 Past Medical History Past Medical History: Anemia, CAD, CVA, High Cholesterol, Heart Disease, Hypertension, Renal Disese, Renal Failure, Other Medical History Other: SLEEP APNEA Past Surgical History: Cholecystectomy, Pacer/AICD, Other, Surgical History Other: RIGHT CHEST , LEFT RAMIN CATH Family History Family History: Negative Social History Social History: Negative ROS Dictation CONSTITUTIONAL: Weakness and dizziness HEAD/FACE: No signs of trauma. EENT: No eye pain, no blurred vision, no tearing, no double vision, no ear pain, no ear discharge, no nose pain, no nasal congestion, no throat pain, no throat swelling, no mouth pain. RESPIRATORY: No cough, no orthopnea, no SOB, no stridor, no wheezing. CARDIOVASCULAR: No chest pain, no edema, no palpitations, no syncope. GASTROINTESTINAL/ABDOMINAL: No abdominal pain, no constipation, no diarrhea, no nausea, no vomiting. GENITOURINARY: No abnormal discharge, no dysuria, no frequent urination, no hematuria. No complaints of pain in the genitals. MUSCULOSKELETAL: No back pain, no gout, no joint pain, no joint swelling, no muscle pain, no muscle stiffness, no neck pain. INTEGUMENTARY: No change in color, no change in hair/nails, no dryness, no lesion, no lumps, no rash. NEUROLOGICAL/PSYCH: No anxiety, not depressed, no emotional problem, no headache, no numbness, no pre-existing deficit, no history of seizures, no tremors, no weakness. HEMATOLOGIC/LYMPHATIC: Not anemic, no history of blood clots, no apparent bleeding, no bruising, glands not swollen. All Systems Negative, Except as Noted. Physical Exam Physical Exam Dictation VITAL SIGNS: Reviewed. GENERAL APPEARANCE: Alert, oriented x3, no acute distress, obese. HEAD AND FACE: Non-traumatic. EYES: PERRL, pink conjunctivas, eyelid no trauma, anterior chamber clear. EARS: Pinnas intact and no signs of trauma or erythema. Ear canals clear and no discharge. TMs no erythema. NOSE: No discharge, no bleeding. OROPHARYNX: Mouth normal, teeth no caries, tongue pink. Pharynx clear, no erythema. Tonsils no exudates, no abscesses noted. Mucous membrane moist. NECK: Supple, non-tender, no thyromegaly, no masses, no JVD, no bruits. BREAST: Deferred. CHEST: No tenderness, no crepitus, no paradoxical movement, no retractions. LUNGS: Clear, well-ventilated, symmetric, no rales, no wheezing, no rhonchi, no stridor, good breath sounds bilaterally. HEART: Regular rate, regular rhythm, no murmur, no gallops. VASCULAR: No peripheral edema. ABDOMEN: Soft, positive bowel sounds, nondistended, no guarding, nontender, no rebound, no masses no hepatomegaly, no splenomegaly, no Buchanan's sign, no hernias. RECTAL: Deferred. GENITAL: Deferred. NEUROLOGICAL: Normal speech, gross motor function intact, gross sensory function intact. MUSCULOSKELETAL: Neck nontender, full range of motion, back nontender, full range of motion. EXTREMITIES: Nontender, full range of motion. SKIN: Color pink, dry, no turgor, no rash, no lacerations, no abrasions, no contusions. LYMPHATICS: Deferred. Results Laboratory and Microbiology Lab and Micro Result Laboratory Tests Test 07/04/25 09:54 07/04/25 11:17 07/04/25 11:39 White Blood Count 10.7 K/uL (4.8-10.8) Red Blood Count 2.85 MIL/uL (4.00-5.50) L Hemoglobin 8.8 g/dL (12.0-16.0) L Hematocrit 27.4 % (36-48) L Mean Corpuscular Volume 96.1 fL (79-99) Mean Corpuscular Hemoglobin 30.9 pg (27.0-33.0) Mean Corpuscular Hemoglobin Concent 32.1 g/dL (32.0-36.0) Red Cell Distribution Width 15.2 % (11.0-15.5) Platelet Count 348 K/uL (130-400) Mean Platelet Volume 9.9 fL (7.5-10.5) Immature Granulocyte % (Auto) 0.5 % (0-1) Neutrophils (%) (Auto) 78.1 % (40.0-77.0) H Lymphocytes (%) (Auto) 12.2 % (21.0-51.0) L Monocytes (%) (Auto) 6.0 % (3.0-13.0) Eosinophils (%) (Auto) 2.5 % (0.0-8.0) Basophils (%) (Auto) 0.7 % (0.0-5.0) Neutrophils # (Auto) 8.4 K/uL (1.8-7.7) H Lymphocytes # (Auto) 1.3 K/uL (1.0-4.8) Monocytes # (Auto) 0.6 K/uL (0.1-1.0) Eosinophils # (Auto) 0.27 K/uL (0.00-0.70) Basophils # (Auto) 0.07 K/uL (0.00-0.20) Absolute Immature Granulocyte (auto 0.05 K/uL (0-1) Nucleated Red Blood Cells 0.0 % (0.0-0.19) Prothrombin Time 9.9 SEC (9.6-11.6) Prothromb Time International Ratio <= 0.93 (0.85-1.15) Activated Partial Thromboplast Time 23.8 SEC (26.3-35.5) L Sodium Level 138 mmol/L (136-145) Potassium Level 3.8 mmol/L (3.5-5.1) Chloride Level 99 mmol/L (101-111) L Carbon Dioxide Level 26 mmol/L (21-32) Blood Urea Nitrogen 47 mg/dL (7-18) H Creatinine 13.5 mg/dL (0.5-1.0) *H Glomerular Filtration Rate Calc 3 mL/min (>90) Random Glucose 136 mg/dL (70-105) H Total Calcium 8.2 mg/dL (8.5-10.1) L Troponin I High Sensitivity 8 ng/L (4-50) Lactic Acid Level 1.7 mmol/L (0.8-2.5) Total Bilirubin 0.3 mg/dL (0.2-1.0) Direct Bilirubin 0.1 mg/dL (0.0-0.3) Aspartate Amino Transf (AST/SGOT) 14 U/L (10-37) Alanine Aminotransferase (ALT/SGPT) 20 U/L (12-78) Alkaline Phosphatase 98 U/L (50-136) C-Reactive Protein, Quantitative 9.90 mg/L (0.5-3.0) H Total Protein 7.3 g/dL (6.0-8.3) Albumin 3.3 g/dL (3.5-5.0) L Lipase 74 U/L (16-77) Urine Color BROWN (YELLOW) Urine Appearance CLOUDY (CLEAR) H Urine pH 7.5 (5.0-8.0) Urine Specific [place] 1.011 (1.001-1.031) Urine Protein 100 mg/dL (NEGATIVE) H Urine Glucose (UA) TRACE mg/dL (NEGATIVE) H Urine Ketones NEGATIVE mg/dL (NEGATIVE) Urine Occult Blood LARGE (NEGATIVE) H Urine Nitrate NEGATIVE (NEGATIVE) Urine Bilirubin NEGATIVE mg/dL (NEGATIVE) Urine Urobilinogen 0.2 mg/dL (0.2-1.0) Urine Leukocyte Esterase 25 Willie/uL (NEGATIVE) H Urine RBC TNTC /HPF (0-1) H Urine WBC 11-25 /HPF (0-1) H Urine Squamous Epithelial Cells MOD /HPF (0-2) Urine Bacteria None /HPF (None Seen) MDM CC: vaginal bleeding, dizziness, nausea Historian: patient Comorbidities: morbid obesity, anemia, CAD, CVA, DLD, CAD, HTN, ESRD on dialysis Limitations: none Ddx: anemia, AUB, ACS, infection, electrolyte abnormality, other Vital signs: Hypertension 154/71, baseline for patient. Otherwise vital signs stable and remained stable. Abdomen is soft nontender nondistended. Labs show no leukocytosis, mild left shift 78% neutrophils no bands. Normocytic anemia hemoglobin in the 8.8. On external chart review, previous labs show baseline hemoglobin of 10. PT/INR, PTT stable. Chemistry shows stable electrolytes, BUN 47 creatinine 3.5. Glucose stable. Lactic acid stable. Liver enzymes are all stable. Troponin normal. Protein and albumin normal. CRP mildly elevated 9.9. Urinalysis shows large blood, there is some leukocyte esterase and WBCs. EKG: Sinus rhythm, rate 77, left axis deviation, good R-wave progression. No STEMI. Independently interpreted by me. Chest x-ray: No cardiomegaly pleural effusions or focal infiltrates. Pelvis ultrasound: No signs of torsion, no major abnormalities. Based on the patient's presentation, she does have a mild anemia hemoglobin 8.8. No indication for infusion at this time. Patient receives Venofer injections 3 times a week with dialysis. Your EKG and troponin are stable low suspicion for ACS. Your urinalysis does show some leukocyte esterase, maybe an infection. We will give a dose of Rocephin here in the ER and treat with some antibiotics. Otherwise no other electrolyte abnormalities. No signs of toxicity. Very low suspicion for any surgical pathology or life threats at this time. Plan will be to discharge with prescription for antibiotics, ondansetron, and recommend PCP follow up. ED Course Orders Procedure Category Date Status Time Cbc With Differential LAB 07/04/25 Complete 09:29 Basic Metabolic Panel LAB 07/04/25 Complete 09:29 Prothrombin Time With LAB 07/04/25 Complete INR 09:29 Partial LAB 07/04/25 Complete Thromboplastin Time 09:29 Troponin I High LAB 07/04/25 Complete Sensitivity 09:57 12 Lead Ekg Tracing- EKG 07/04/25 Complete Technical 09:57 Us Pelvic Non-Ob Comp US 07/04/25 Resulted 10:14 Lipase LAB 07/04/25 Complete 10:54 Hepatic Function Panel LAB 07/04/25 Complete 10:54 Urinalysis Profile LAB 07/04/25 Complete 10:54 Chest 1vw RAD 07/04/25 Resulted 10:54 Lactic Acid LAB 07/04/25 Complete 10:54 Crp Quantitative LAB 07/04/25 Complete 10:54 Ondansetron 4mg Inj PHA 07/04/25 Complete (Zofran 4mg Inj) 12:30 Ondansetron 4mg PHA 07/04/25 Complete Tablet (Zofran 4mg 12:30 Culture Urine SANDRA 07/04/25 In Process 12:26 Ceftriaxone 1g Vial PHA 07/04/25 Complete (Rocephine 1g Inj) 13:00 Current Medications Medications (Trade) Dose Ordered Sig/Mayank Route PRN Reason Start Time Stop Time Status Last Admin Dose Admin Ceftriaxone Sodium (ROCEphine 1G INJ) 1 gm ONCE ONCE IM 07/04/25 13:00 07/04/25 13:01 DC Ondansetron HCl (zoFRAN 4MG TABLET) 4 mg ONCE ONCE PO 07/04/25 12:30 07/04/25 12:31 DC 07/04/25 12:25 Ondansetron HCl (zoFRAN 4MG INJ) 4 mg ONCE ONCE IVP 07/04/25 12:30 07/04/25 12:15 DC Vital Signs Date Time Temp Pulse Resp B/P (MAP) Pulse Ox O2 Delivery O2 Flow Rate FiO2 07/04/25 11:29 81 20 149/83 99 Room Air* 0 21 07/04/25 09:15 97.9 77 20 154/71 99 Room Air DX & DISP Disposition: Discharge Departure Impression: Primary Impression: UTI (urinary tract infection) Additional Impressions: Anemia, ESRD on dialysis, Hypertension, Nausea & vomiting Condition: Stable Scripts Ondansetron (Ondansetron Odt) 4 Mg Tab.rapdis 1 TAB PO Q6HPRN PRN for nausea/vomiting for 3 Days, #10 TAB 0 Refills Prov: MARY WOODS DO 07/04/25 Cefpodoxime Proxetil (Cefpodoxime Proxetil) 200 Mg Tablet 200 MG PO BID for 7 Days, #14 TAB Prov: MARY WOODS DO 07/04/25 Additional Instructions: You are anemic. Your hemoglobin is 8.8. At baseline it is 10. As we discussed, continue getting the Venofer injections. Follow up with the primary doctor. Your urinalysis all show so some bacteria. Your symptoms may be related to a urinary tract infection. You received a dose of antibiotics here in the ER via injection, and I have prescribed antibiotics to take for the next week. Please take as prescribed. I have prescribed ondansetron dissolvable tabs to use as needed for the nausea and vomiting. Be sure to drink plenty of liquids. Avoid irritating foods. Your pelvic ultrasound was unremarkable. Your chest x-ray is clear. Your EKG is at baseline. The rest of your blood work is unremarkable. Please follow up with your primary doctor regarding your symptoms. Referrals: FABBY SPENCER MD (PCP) MARY WOODS DO Jul 04, 2025 09:57
[2025-07-04 10:01] LABS: IMMATURE GRANULOCYTE ABSOLUTE 0.05 K/uL (0-1); NUCLEATED RED BLOOD CELLS 0.0 % (0.0-0.19); PLATELET COUNT (AUTO) 348 K/uL (130-400); RED BLOOD CELL COUNT(AUTO) 2.85 MIL/uL (4.00-5.50); RED CELL DISTRIBUTION WIDTH 15.2 % (11.0-15.5); WHITE BLOOD COUNT (AUTO) 10.7 K/uL (4.8-10.8)
[2025-07-04 10:12] LABS: INR <= 0.93 (0.85-1.15)
[2025-07-04 10:14] LABS: GLOMERULAR FILTR. RATE CALC 3.0 mL/min (>90); GLUCOSE,RANDOM 136.0 mg/dL (70-105); SODIUM SERUM 138.0 mmol/L (136-145); UREA NITROGEN, BLOOD 47.0 mg/dL (7-18)
[2025-07-04 10:15] LABS: CREATININE 13.5 mg/dL (0.5-1.0)
--- NOTE | 2025-07-04 10:31 | EKG ---
[facility] Test Date: 2025-07-04 Test Time: 10:03:31 Pat Name: MANA ABDUL Department: ED Room: Gender: F [employer]: 07 : 1975 Requested By: MARY WOODS Order Number: [id number] Reading MD: Alex Taveras Measurements Intervals [place] Rate: 77 P: 71 CA: 354 QRS: -29 QRSD: 118 T: 42 QT: 403 QTc: 456 Interpretive Statements Sinus rhythm Prolonged CA interval Nonspecific intraventricular conduction delay Low voltage, precordial leads Compared to ECG 05/04/2025 17:03:39 Intraventricular conduction delay now present Low QRS voltage now present Electronically Signed On 07-06-2025 19:57:41 CDT by Alex Taveras Please click the below link to view image of tracing.
--- NOTE | 2025-07-04 11:21 | HMCIMG ---
EXAM: Pelvic Ultrasound, Complete (Transabdominal) CLINICAL HISTORY: Vaginal bleeding TECHNIQUE: Transabdominal pelvic ultrasound performed with grayscale and Doppler imaging. Evaluation limited by large body habitus. COMPARISON: None provided. FINDINGS: Endometrium: Measures 5 mm, within normal limits. Uterus/Cervix: Measures 13 ??? 6.3 ??? 6.4 cm. Normal contour and echotexture. No fibroids or focal myometrial mass. Right Ovary: Measures 3.6 ??? 2.0 ??? 2.8 cm. Normal appearance with preserved vascular flow. No adnexal mass. Left Ovary/Adnexa: Not well visualized. Left adnexa obscured. Free Fluid: None. IMPRESSION: Unremarkable uterus and right ovary. Left ovary/adnexa not well visualized due to body habitus. No free fluid. /[place]
[2025-07-04 11:39] LABS: ASPARTATE AMINOTRANSFERASE 14.0 U/L (10-37); TOTAL PROTEIN, SERUM 7.3 g/dL (6.0-8.3)
--- NOTE | 2025-07-04 11:43 | HMCIMG ---
EXAM: CR Chest, 1 View. CLINICAL HISTORY: vomiting COMPARISON: 05/04 17:17 EDT CR - CHEST 1VW FINDINGS: Left cardiac pacer. Right CVC with tip in SVC. LUNGS: The lungs show no infiltrate or other acute finding. PLEURAL SPACES: No evidence of pleural effusion or pneumothorax. MEDIASTINUM: Cardiac size and mediastinal contours within normal limits. BONES: No acute osseous abnormality. IMPRESSION: No acute cardiopulmonary pathology is evident. /[place]
[2025-07-04 12:10] LABS: APPEARANCE,URINE CLOUDY (CLEAR); GLUCOSE, URINE (UA) TRACE mg/dL (NEGATIVE); LEUKOCYTE ESTERASE ,URINE 25 Leu/uL (NEGATIVE); NITRATE,URINE NEGATIVE (NEGATIVE); OCCULT BLOOD,URINE LARGE (NEGATIVE)
[2025-07-04 12:20] LABS: ADD UA MICROSCOPIC YES
[2025-07-04 12:23] LABS: SQUAMOUS EPITHELIAL CELL,UR MOD /HPF (0-2)
[2025-07-04] MEDS ORDERED: CEFP200T14 PO (13:06)
[2025-07-04] MEDS ORDERED: ONDA-243 PO (13:06)
[2025-07-04 13:23] VITALS: BP 143/71; PULSE 79; RESP 19; TEMP 97.8; O2SAT 99
== END 2025-07-04 13:22 | disposition home or self-care (01) ==
LOC: EDH 09:14
DX: N39.0 Urinary tract infection, site not specified (principal); D64.9 Anemia, unspecified; I13.11 Hypertensive heart and chronic kidney disease without heart failure, with stage 5 chronic kidney disease, or end stage renal disease; E11.22 Type 2 diabetes mellitus with diabetic chronic kidney disease; N18.6 End stage renal disease; E78.00 Pure hypercholesterolemia, unspecified; I25.10 Atherosclerotic heart disease of native coronary artery without angina pectoris; Z79.01 Long term (current) use of anticoagulants; Z79.899 Other long term (current) drug therapy; Z86.73 Personal history of transient ischemic attack (TIA), and cerebral infarction without residual deficits; Z88.5 Allergy status to narcotic agent; Z88.8 Allergy status to other drugs, medicaments and biological substances; Z99.2 Dependence on renal dialysis; Z90.49 Acquired absence of other specified parts of digestive tract; Z95.810 Presence of automatic (implantable) cardiac defibrillator
CPT/HCPCS: 99285; 76856; 71045; 80076; 84484; 80048; 83690; 85025; 85610; 85730; 87086; 83605; 86140; 81001; 36415; 96372; 93005; Q0162; J0696